=== PATIENT | male | born 1960 | race Caucasian/White ===

== ENCOUNTER 2016-08-18 19:56 | Emergency (ER) | payer MEDICARE, SELFPAY ==
[~2016-08-18 19:56] MED LIST: ADULT LOW DOSE81 MG PO; CRESTOR10 MG PO; HYDROCODONE 5MG/5 MG PO; KLOR-CON M2020 MEQ PO; MAGOX 400400 MG PO; MOTRIN-DPS600 MG PO; MUCINEX1200 MG PO; PROTONIX40 MG PO; TENORMIN-DPS25 MG PO; THERAPEUTIC M1 EAC1 PO; THERAPEUTIC MUL1 TAB PO; TYLENOL ARTHRI650 MG PO; VITAMIN D1000 UNI1 PO; ZESTRIL5 MG PO; ZITHROMAX500 MG PO
--- NOTE | 2016-09-23 18:52 | ER ---
ADMIT: 08/18/2016 RM/LOC: ER [facility] MR#: [id number] [address] [address] [address] [place] [address] [address] [place] [address] Emergency Room Report SEX: M AGE: 56 : 1960 DATE: 08/18/2016 ADDENDUM: HISTORY OF PRESENT ILLNESS: This patient comes to the ER because he has redness in his eyes, and he is doing a lot of coughing. He was recently diagnosed with having a sinusitis. The drainage from his eyes is a bright green. PHYSICAL EXAMINATION: EYES: The sclerae of both eyes are injected, with a green exudate. Eyes are EOMI, PERRLA. DIAGNOSES: 1. Conjunctivitis. 2. Bronchitis. He was taught how to use an albuterol inhaler with a spacer. I wrote a prescription for erythromycin ointment in his eye. Chest x-ray was negative for pneumonia diagnosis. Continue with the antibiotics that were prescribed by his physician, albuterol inhaler, and to follow up with Dr. Flores as needed. Please see my T-sheet. JED Marsh / Greg Blackwood MD / fracisco JOB #: [id number] CC: Greg Blackwood MD, Attending Physician Marcelino Flores MD, Family Physician
== END 2016-08-18 23:10 | disposition home or self-care (01) ==
LOC: ER 19:56
DX: H10.9 Unspecified conjunctivitis (principal); J40 Bronchitis, not specified as acute or chronic; I10 Essential (primary) hypertension; Z88.1 Allergy status to other antibiotic agents; Z79.82 Long term (current) use of aspirin; Z87.891 Personal history of nicotine dependence

== ENCOUNTER 2016-08-28 19:58 | Emergency (ER) | payer MEDICARE, SELFPAY ==
--- NOTE | 2016-08-31 07:42 | ER ---
ADMIT: 08/28/2016 RM/LOC: ER [facility] MR#: [id number] [id number] [place], [place] [address] [address] [place] [address] [address] [place] [address] Emergency Room Report SEX: M AGE: 56 : 1960 DATE: 08/28/2016 TIME: 1957 Please refer to my T-sheet for complete H and P. HISTORY OF PRESENT ILLNESS: Briefly, the patient is 56-year-old who comes in with cough, congestion, has been going on for 2-3 weeks. He finished a round of antibiotics and clindamycin, has not helped. Does not smoke. He is here for evaluation. He states he is still very congested, coughing up. PHYSICAL EXAMINATION: VITAL SIGNS: Blood pressure 127/72, pulse 102, respirations 20, temp 102.4, saturating 99%. GENERAL: He is in no acute distress. HEENT: Severely congested. Purulent nasal drainage. LUNGS: Slightly coarse. HEART: Regular. ABDOMEN: Soft. SKIN: No rash. EMERGENCY DEPARTMENT COURSE: We gave him a DuoNeb. Chest x-ray revealed no obvious infiltrate. Influenza test was negative, and 1 g of Tylenol p.o., 500 mg of Zithromax p.o. and 1 g of Rocephin IM. I had a long discussion and ready for discharge. ASSESSMENT: 1. Acute bronchitis. 2. Fever. 3. Sinusitis. PLAN: Tylenol, Motrin, fluids. Return if worse. Vicks and honey over-the- counter and Zithromax, and follow up with Dr. Flores this week. Kendall Cordova MD/ fracisco JOB #: [id number] CC: Martin Gillis MD, Attending Physician Marcelino Flores MD, Family Physician
== END 2016-08-28 22:31 | disposition home or self-care (01) ==
LOC: ER 19:58
DX: J20.9 Acute bronchitis, unspecified (principal); J32.9 Chronic sinusitis, unspecified; I10 Essential (primary) hypertension; Z88.1 Allergy status to other antibiotic agents; Z79.82 Long term (current) use of aspirin; Z79.899 Other long term (current) drug therapy

== ENCOUNTER 2016-11-17 20:26 | Emergency (ER) | payer MEDICARE, SELFPAY ==
--- NOTE | 2016-11-19 15:59 | ER ---
ADMIT: 11/17/2016 RM/LOC: ER [facility] MR#: [id number] [address] [place], [place] [address] [address] [place] [address] Emergency Room Report SEX: M AGE: 56 : 1960 DATE: 11/17/2016 CHIEF COMPLAINT: Shortness of breath. HISTORY OF PRESENT ILLNESS: A 56-year-old male comes in with worsening shortness of breath. States he feels like he is unable to catch his breath. States he has been dealing with severe seasonal allergies for the past 9 months developing into a worsening cough over the past 2 months. States he was on his way home from shop today when he had an episode of coughing and since then he has just felt very poorly. Admits to fevers, chills, sweating, productive white phlegm in his cough, and some lightheadedness after he coughs. PAST MEDICAL HISTORY: Significant for coronary artery disease, status post stenting; seasonal allergies. He was in to see Dr. Flores on Tuesday, diagnosed with seasonal allergies. COURSE IN THE EMERGENCY ROOM: The patient was seen and examined, afebrile, and nontoxic. No acute distress. NECK: No lymphadenopathy. HEENT: Eyes normocephalic. Pharynx nonerythematous. TMs pearly dominguez bilaterally. GENERAL: He is alert, in no acute distress. Mild anxiety. CHEST: Nontender. He does have some faint wheezes in the bases. He speaks in full sentences. HEART: Regular rate and rhythm. No murmurs, gallops, or rubs. SKIN: Warm and dry. EXTREMITIES: Nontender. No pedal edema. I did give him a DuoNeb treatment today, mildly improved his symptoms. Chest x-ray revealed some interstitial changes in the right lung compared to previous film. He was given his first dose of Zithromax 250 mg prior to ADMIT: 11/17/2016 RM/LOC: ER [facility] MR#: [id number] [address] [address] [place] [address] Emergency Room Report SEX: M AGE: 56 : 1960 discharge. He was also given a dose of 20 mg of prednisone. IMPRESSION: 1. Interstitial pneumonia on the right. 2. Cough. 3. Seasonal allergies. DISPOSITION: The patient will be started on Zithromax 250 mg tabs for 4 days. He will also be given prednisone 20 mg daily for 4 days. He is to follow up with his primary care next week. I did recommend he start [id number] antihistamine and continue on this medication given his significant allergy history. The patient discharged in stable condition. JED Morales / Kendall Cordova MD / augustal JOB #: [id number] CC: Kendall Cordova MD, Attending Physician Marcelino Flores MD, Family Physician
== END 2016-11-17 21:30 | disposition home or self-care (01) ==
LOC: ER 20:26
DX: J84.9 Interstitial pulmonary disease, unspecified (principal); Z79.82 Long term (current) use of aspirin; Z88.0 Allergy status to penicillin; Z88.8 Allergy status to other drugs, medicaments and biological substances

== ENCOUNTER 2016-11-25 13:50 | Emergency (ER) | payer MEDICARE, SELFPAY ==
--- NOTE | 2016-12-03 18:56 | ER ---
ADMIT: 11/25/2016 RM/LOC: ER [facility] MR#: [id number] [address] [facility] [address] [place], [place] [address] [facility] [place] [address] [place] [address] Emergency Room Report SEX: M AGE: 56 : 1960 DATE: 11/25/2016 ADDENDUM: CHIEF COMPLAINT: Shortness of breath and weakness. HISTORY OF PRESENT ILLNESS: This is a 56-year-old male, who did develop these symptoms about a week ago. He actually was seen in the emergency room. We started him on antibiotics and prednisone. He also saw Dr. Flores, which continued him on the clindamycin. He just really is not getting any better, feels like he is having more shortness of breath. What really scared him today is he did have some hemoptysis, so he was concerned so came into the ER. PAST MEDICAL HISTORY: Heart disease with a cardiac stent. MEDICATIONS: A baby aspirin daily and clindamycin t.i.d. ALLERGIES: TO LEVAQUIN. SOCIAL HISTORY: Denies any tobacco or drug use. 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 REVIEW OF SYSTEMS: CONSTITUTIONAL: Denies any fevers or chills, but has had this recent bronchitis/pneumonia. CARDIOVASCULAR/RESPIRATORY: Denies any chest pain, but has had increased shortness of breath. GI/: Denies any nausea, vomiting, diarrhea, or dysuria. All other systems otherwise negative. PHYSICAL EXAMINATION: VITAL SIGNS: Blood pressure is 141/64; pulse 86; respirations 20; temperature is 99.1, tympanic; and saturation of oxygen is 92% on room air. GENERAL APPEARANCE: He is in no acute distress. Alert. HEENT: Pharynx is moist with no tonsillar swelling or exudate. TMs are dull, but non-erythemic bilateral. NECK: Supple. HEART: Regular rate and rhythm. ADMIT: 11/25/2016 RM/LOC: ER [facility] MR#: [id number] [facility] [address] [address] [place] [address] Emergency Room Report SEX: M AGE: 56 : 1960 LUNGS: Just decreased bilateral. No wheezes, rales, or rhonchi. ABDOMEN: Soft, nontender. SKIN: Normal color, warm, and dry. No rashes noted. NEURO AND PSYCH: He is alert and oriented x3. Mood and affect normal. EMERGENCY ROOM COURSE: A CBC was normal except for hemoglobin of 13.0. I did CT of his chest, which seems to be an atypical pneumonia with multiple opacities bilateral. I am having him continue the clindamycin and adding Zithromax. I told him to follow up with Dr. Flores if his symptoms continue to worsen. CLINICAL IMPRESSION: Bilateral atypical pneumonia. JED Voss / Greg Blackwood MD / modl JOB #: [id number] CC: Greg Blackwood MD, Attending Physician Marcelino Flores MD, Family Physician
== END 2016-11-25 16:40 | disposition home or self-care (01) ==
LOC: ER 13:50
DX: J18.9 Pneumonia, unspecified organism (principal); Z79.82 Long term (current) use of aspirin; Z88.1 Allergy status to other antibiotic agents